=== PATIENT | male | born 1965 | race Two or more races ===

== ENCOUNTER 2018-12-28 21:00 | Emergency (ER) | payer OTHER ==
[~2018-12-28] VITALS: Ht 177.8 cm; Wt 72.6 kg
[2018-12-28 21:06] VITALS: BP 140/77
== END 2018-12-28 22:01 | disposition home or self-care (01) ==
LOC: ER 21:03
DX: L02.31 Cutaneous abscess of buttock (principal); F17.200 Nicotine dependence, unspecified, uncomplicated; Z98.890 Other specified postprocedural states
CPT/HCPCS: 10060; 99283; A6402; A6407